=== PATIENT | female | born 1960 | race Caucasian/White ===

== ENCOUNTER 2018-01-21 12:01 | Day surgery (SDC) | END 2018-01-21 16:54 | disposition home or self-care (01) ==

== ENCOUNTER 2019-06-02 07:17 | Day surgery (SDC) | payer OTHER ==
[~2019-06-02] VITALS: Ht 154.9 cm; Wt 86.6 kg
[2019-06-02] VITALS (13 sets, daily range): BP systolic 93–125; BP diastolic 59–78; PULSE 56–66; RESP 13–20; Ht 154.9 cm; Wt 86.6 kg
[~2019-06-02 07:17] MED LIST: AMITRIPTYLINE PO; ATORVASTATIN PO; BACLOFEN PO; CETI10TA19 PO; CETIRIZINE PO; FAMOTIDINE PO; MITOMYCIN 5 MG INJ OP ONE
--- NOTE | 2019-06-02 08:44 | HPN ---
Date/Time of Note Date/Time of Note DATE: 06/02/19 TIME: 08:44 Interval H&P Admission Note Pt. seen H&P reviewed: No system changes MARITZA MUNSON MD Jun 02, 2019 08:44
--- NOTE | 2019-06-02 08:58 | PREAC ---
Date/Time of Note Date/Time of Note DATE: 06/02/19 TIME: 08:56 Anesthesia Eval and Record Evaluation Time Pre-Procedure Interview DATE: 06/02/19 TIME: 08:56 Age 59 Sex female NPO: 8 hrs Preoperative diagnosis Right eye pterygium Planned procedure Excision of pterygium Past Medical History Past Medical History: Includes Cardio: HTN, Dyslipidemia Pulm: Sleep Apnea, Home CPAP GI: GERD, Obesity Surgery & Anesthesia Issues No known issue Meds Anticoagulation: No Beta Francisco within 24 hr: Yes Reported Medications [Baclofen] No Conflict Check, PO PRN for PAIN 01/21/18 [Famotidine] No Conflict Check, PO 01/21/18 Cetirizine Hcl* (Cetirizine Hcl*) 10 Mg Tablet, 10 MG PO DAILY PRN for ALLERGIES, #30 TAB 01/21/18 [Amitriptyline] No Conflict Check, PO PRN for SLEEP 01/21/18 [Cetirizine] No Conflict Check, PO PRN for ALLERGIES 01/21/18 [Atorvastatin] No Conflict Check, PO 01/21/18 Current Medications Mitomycin (Mutamycin) 0.3 mg INTRA-OP ONCE RIGHT EYE ; Start 06/02/19 at 12:00; Stop 06/02/19 at 12:01 Meds reviewed: Yes Allergies Coded Allergies: No Known Allergy (Unverified , 01/21/18) Allergies Reviewed: Yes Labs/Studies Labs Reviewed: Reviewed by anesthesiologist test: N/A Pre-procedure Exam Last vitals Vital Signs Date Temp Pulse Resp B/P (MAP) Pulse Ox O2 O2 Flow FiO2 Time Delivery Rate 06/02/19 97.9 64 18 119/64 98 Room Air 08:34 (82) Airway: Adequate mouth opening Mallampati: Mallampati II Teeth: Normal Lung: Normal Heart: Normal ASA Physical Status ASA physical status: 3 Emergency: None Planned Anesthetic General/MAC: LMA, MAC Planned Pain Management Parenteral pain med Pre-operative Attestations Prior to commencing anesthesia and surgery, the patient was re-evaluated, there was verification of: *The patient's identity *The results of appropriate recent lab work and preoperative vital signs *The above evaluation not changing prior to induction *Anesthetic plan, risk benefits, alternative and complications discussed with patient/family; questions answered; patient/family understands, accepts and wishes to proceed. LEONIE DIAS MD Jun 02, 2019 08:58
[2019-06-02] MEDS ORDERED: PROPOFOL 20 ML ONE (09:14)
[2019-06-02] MEDS ORDERED: MIDAZOLAM 1 MG/ML 2 ML INJ ONE (09:23)
[2019-06-02] MEDS ORDERED: LIDOCAINE 1.5%/EPI MPF (SDV) 30 ML VIAL ONE (09:24)
[2019-06-02] MEDS ORDERED: BALANCED SALT SOLN 15 ML OPH IRRIG ONE (09:24)
[2019-06-02] MEDS ORDERED: MIDAZOLAM 1 MG/ML 2 ML INJ IV PRN (10:00)
[2019-06-02] MEDS ORDERED: OXYCODONE/ACETAMINOPHEN (5/325) TAB PO PRN ×2 (10:00)
[2019-06-02] MEDS ORDERED: hydrALAzine 20 MG INJ IV PRN (10:00)
[2019-06-02] MEDS ORDERED: EPHEDrine 25 MG/5 ML SYG IV PRN (10:00)
[2019-06-02] MEDS ORDERED: METOCLOPRAMIDE 10 MG INJ IV PRN (10:00)
[2019-06-02] MEDS ORDERED: LABETALOL HCL 20MG INJ IV PRN (10:00)
[2019-06-02] MEDS ORDERED: FENTAnyl 50 MCG/ML VIAL IV PRN ×3 (10:00)
[2019-06-02] MEDS ORDERED: DIPHENHYDRAMINE 50 MG INJ IV PRN (10:00)
[2019-06-02] MEDS ORDERED: MEPERIDINE 25 MG INJ IV PRN (10:00)
[2019-06-02] MEDS ORDERED: ONDANSETRON 4 MG INJ IV PRN (10:00)
--- NOTE | 2019-06-02 10:25 | SIPON ---
Date/Time of Note Date/Time of Note DATE: 06/02/19 TIME: 10:22 Operative Report Preoperative Diagnosis pterygium right ete Postoperative Diagnosis same Operation/Procedure Performed 1. excision of pterygium 2. application of MMC 3. clisure of defect with advancement flaps Surgeon see signature line information assistant none Anesthesia: MAC Estimated blood loss: none Transfusion Required none Specimen none Grafts/Implants none Complications none MARITZA MUNSON MD Jun 02, 2019 10:25
--- NOTE | 2019-06-02 11:04 | PAC ---
Date/Time of Note Date/Time of Note DATE: 06/02/19 TIME: 11:03 Post-Anesthesia Notes Post-Anesthesia Note Last documented vital signs Vital Signs Date Temp Pulse Resp B/P (MAP) Pulse Ox O2 O2 Flow FiO2 Time Delivery Rate 06/02/19 60 19 100/69 97 Room Air 10:39 (79) 06/02/19 98.7 10:19 Activity: WNL Respiratory function: WNL Cardiovascular function: WNL Mental status: Baseline Pain reasonably controlled: Yes Hydration appropriate: Yes Nausea/Vomiting absent: Yes Comments BT: 98.7 LEONIE DIAS MD Jun 02, 2019 11:04
[2019-06-02] MEDS ORDERED: MITOMYCIN 5 MG INJ RIGHT EYE ONE (12:00)
--- NOTE | 2019-06-07 18:43 | OPR ---
DATE OF OPERATION: 06/02/2019 SURGEON: Lisseth Humphrey MD [employer] PELLETIZER: None. ANESTHESIOLOGIST: PREOPERATIVE DIAGNOSIS: Pterygium, right eye. POSTOPERATIVE DIAGNOSIS: Pterygium, right eye. OPERATION: Excision of pterygium, right eye; application of mitomycin C; closure of defect with conj unctival advancement flaps. DESCRIPTION OF PROCEDURE: Following standard preparation and draping of the patient, a solid-blade l id speculum was placed for immobilization of the lids. A small amount of 2% Xylocaine with epinephri ne was injected beneath the body of the pterygium so as to elevate it from the underlying sclerae. A fter adequate local anesthesia was obtained, Adam scissors were simply used to make an incision a long the edges of the pterygium, amputating the body approximately 1 cm posterior to the limbus. At the limbus, the major portion of the tissue was simply excised using sharp scissors. Using a rotatin g jermaine bur, all of the scar tissue on the cornea was removed down to clear cornea. At this point, bleeding points were secured with the heat cautery. Mitomycin C (0.2 mg/ml) was now applied to the limbal regions for three minutes. After three minutes, the eye was copiously irrigated with balanced salt solution. A peritomy was now performed both superiorly and inferiorly and relaxing incisions m morena at approximately the 6 and 12 o'clock positions. The undermining conjunctiva was now pulled both superiorly and inferiorly so as to close the previously made defect from which the pterygium had bee n removed. Sutures of interrupted 8-0 Vicryl were used and a bite of the underlying sclera was taken so as to ensure adequate maintenance of the flaps in a nonmovable position. Betadine 5% solution was placed on the eye, along with TobraDex ointment. A light pressure dressing was applied, and the patient returned to the recovery room in satisfactory condition. Dictated By: LISSETH WICK/MELISSA Conf#: [id number] DID#: [id number]
== END 2019-06-02 11:58 | disposition home or self-care (01) ==
LOC: SDS 07:17
PROVIDERS: ATTEND Ophthalmology
DX: H11.001 Unspecified pterygium of right eye (principal)
CPT/HCPCS: 65420; J2175; J2250; J9280; Z7512; Z7610